=== PATIENT | female | born 1985 | race African-American/Black ===

== ENCOUNTER 2016-09-02 22:30 | Emergency (ER) | payer OTHER, MEDICAID ==
[~2016-09-02] VITALS: Ht 170.2 cm; Wt 123.0 kg
[~2016-09-02 22:30] MED LIST: NAPHSOL EACH EYE; Z.0.NO CURRENT MEDS
[2016-09-02 22:46] VITALS: BP 138/62; PULSE 98; RESP 16; TEMP 98.2; O2SAT 98
[2016-09-02] MEDS ORDERED: TETANUS/DIPHTHERIA TOXOID ADULT 0.5 ML VIAL IM ONE (23:30)
--- NOTE | 2016-09-02 23:41 | PD ---
HPI Chief Complaint: Injury Time Seen by Provider: 23:30 Travel History International Travel<30 days: No Contact w/Intl Traveler<30days: No Traveled to known affect area: No History of Present Illness HPI 31-year-old black female presents emergency Department with complaints of left ankle pain after a trip and fall prior to arrival. She states that she had stubbed her right foot causing her to stumble and twisted her left ankle. The patient does not report hearing any or feeling any popping or cracking. Pain is moderate. She denies injury to head, neck or back. No numbness, tingling or weakness. She has not had a tetanus shot over 5 years. [facility] Past Medical History Narrative Medical Questionable autoimmune disease with positive CM, gallstones Diminished Hearing: No Gastrointestinal Disorders: Yes (GALLSTONES) Tetanus Vaccination: > 5 Years Influenza Vaccination: No ?: Unknown LMP: 08/10/16 : 0 Past Surgical History Narrative Surgical Cholecystectomy Cholecystectomy: Yes Social History Alcohol Use: Yes (RARE) Tobacco Use: No Substance Use: No Allergies-Medications (Allergen,Severity, Reaction): Coded Allergies: Codeine (Verified Adverse Reaction, Severe, Palpitations, 09/02/16) No rx if takes one pill, palpitations if takes two pills at once Norflex (Verified Adverse Reaction, Severe, Rash, SWELLING, 09/02/16) Toradol (Verified Adverse Reaction, Severe, Rash, SWELLING, 09/02/16) Reported Meds & Prescriptions Reported Meds & Active Scripts Active No Active Prescriptions or Reported Medications Review of Systems Except as stated in HPI: all other systems reviewed are Neg Physical Exam Narrative GENERAL: Well-developed, well-nourished in no apparent distress. Nontoxic appearing. HEAD: Normocephalic, atraumatic. EYES: Pupils equal round and reactive. Extraocular motions intact. No scleral icterus. No injection or drainage. ENT: Nose clear. Throat without erythema, tonsillar hypertrophy or exudate. Uvula midline. Airway patent. NECK: Trachea midline. Supple, nontender, moves head freely. No central bony tenderness or spasm. CARDIOVASCULAR: Regular rate and rhythm without murmurs, gallops, or rubs. RESPIRATORY: Clear to auscultation. Breath sounds equal bilaterally. No wheezes , rales, or rhonchi. GASTROINTESTINAL: Abdomen soft, non-tender, nondistended. No hepato-splenomegaly , or palpable masses. No guarding. EXTREMITIES: No clubbing, cyanosis, the right foot has an abrasion over the second toe but there is no bony tenderness in the foot, ankle, knee or hip. The left lower extremity reveals pain to the posterior and anterior components of the lateral malleolus with mild swelling. The skin is intact. No pain in the forefoot, heel, Achilles, knee or hip. She has intact sensation with good distal pulses. BACK: Nontender without deformity. No flank tenderness. NEUROLOGICAL: Awake, alert and oriented x 3 .Cranial nerves grossly intact. Motor and sensory grossly within normal limits. Normal speech. Data Data Last Documented VS Vital Signs Date Time Temp Pulse Resp B/P Pulse Ox O2 Delivery O2 Flow Rate FiO2 09/02/16 23:25 16 97 Room Air 09/02/16 22:46 98.2 98 138/62 Orders Ankle, Complete ([id number]) (09/02/16 23:25) Ice/Cold Pack (09/02/16 23:25) Tetanus/Diphtheria Tox Adult (Tetanus/Di (09/02/16 23:30) MDM Medical Decision Making Medical Screen Exam Complete: Yes Emergency Medical Condition: Yes Medical Record Reviewed: Yes Interpretation(s) Left ankle: Negative for fracture. Differential Diagnosis MDM: High Differential diagnoses: Fracture, sprain, strain, dislocation, contusion, neurovascular injury Narrative Course X-ray is negative for fracture. Patient's given 1 g of Tylenol by mouth, ice pack, Brian wrap and crutches. This is left ankle sprain Diagnosis Primary Impression: Left ankle sprain Qualified Code: S93.422A - Sprain of deltoid ligament of left ankle, initial encounter Patient Instructions: General Instructions Departure Forms: Tests/Procedures, Work Release Special Instructions: NO WORK 2 DAYS Additional Instructions: Rest. Elevation. Ice packs for the next 3 days. Brian wrap and crutches. No weight-bearing and then progress to weight-bearing as tolerated. 2 extra strength Tylenol every 4 hours as needed for pain. Follow-up with an orthopedist or your doctor in one week. Return to the ER if any problems Med/Other Pt SpecificInfo: Prescription(s) given Scripts No Active Prescriptions or Reported Meds Disposition: 01 DISCHARGE HOME Condition: Stable Dimitris Olivarez Sep 02, 2016 23:41
--- NOTE | 2016-09-02 23:47 | RADRPT ---
EXAM DATE/TIME: 09/02/2016 23:36 [facility] COMPARISON: No previous studies available for comparison. INDICATIONS : Pt twisted ankle tonight and fell. Pain to left lateral ankle. MEDICAL HISTORY : None. SURGICAL HISTORY : None. ENCOUNTER: Initial ACUITY: 1 day PAIN SCORE: 9/10 LOCATION: Left ankle FINDINGS: Three view exam was performed of the left ankle. The bony structures are in normal alignment. No ev idence of fracture, dislocation, or soft tissue swelling. The ankle mortise is intact. No radiopaqu e foreign bodies are seen. Bony mineralization is normal. CONCLUSION: Unremarkable examination of the left ankle. Praveen Buckner MD on September 02, 2016 at 23:44 Board Certified Radiologist. This report was verified electronically.
[2016-09-03] MEDS ORDERED: ACETAMINOPHEN 500 MG CPLT PO ONE
== END 2016-09-03 00:04 | disposition home or self-care (01) ==
LOC: NEPB 22:30
DX: S93.402A Sprain of unspecified ligament of left ankle, initial encounter (principal); Z23 Encounter for immunization; S90.414A Abrasion, right lesser toe(s), initial encounter; W01.0XXA Fall on same level from slipping, tripping and stumbling without subsequent striking against object, initial encounter
CPT/HCPCS: 73610; 90471; 90714; 99283; E0113

== ENCOUNTER 2017-07-14 15:32 | Emergency (ER) | payer OTHER, MEDICAID ==
[~2017-07-14] VITALS: Ht 170.2 cm; Wt 140.0 kg
[2017-07-14 15:35] VITALS: BP 141/90; PULSE 98; RESP 16; TEMP 100; O2SAT 100
[2017-07-14] MEDS ORDERED: DEXAMETHASONE SOD PHOS 4 MG/ML VIAL IM ONE (17:45)
--- NOTE | 2017-07-14 18:06 | PD ---
HPI Chief Complaint: ENT Complaint Time Seen by Provider: 17:29 Travel History International Travel<30 days: No Contact w/Intl Traveler<30days: No Traveled to known affect area: No History of Present Illness HPI 32 yo F c/o sore throat for 3 days. swallowing is painful. daughter has strep throat. pain is constant. it involves both sides of the oropharynx. no cough. subjective fever is reported. pt also wonders if she may have a uti however states she is asymptomatic for UTI related complaints. PFSH Past Medical History Diminished Hearing: No Gastrointestinal Disorders: Yes (GALLSTONES) ?: Not LMP: 07/04/17 : 0 Past Surgical History Cholecystectomy: Yes Social History Alcohol Use: Yes (RARE) Tobacco Use: No Substance Use: No Allergies-Medications (Allergen,Severity, Reaction): Coded Allergies: codeine (Unverified Adverse Reaction, Severe, Palpitations, 04/02/17) No rx if takes one pill, palpitations if takes two pills at once ketorolac (Unverified Adverse Reaction, Severe, Rash, SWELLING, 04/02/17) orphenadrine (Unverified Adverse Reaction, Severe, Rash, SWELLING, 04/02/17 ) Reported Meds & Prescriptions Reported Meds & Active Scripts Active Amoxicillin 500 Mg Cap 500 Mg PO BID 10 Days Review of Systems General / Constitutional: Positive: Fever (subjective) HENT: No: Headaches Cardiovascular: No: Chest Pain or Discomfort Respiratory: No: Shortness of Breath Physical Exam Narrative GENERAL: 32 yo female expectorating into a green emesis bag, ambulatory in ed room, speaking full sentences, bmi 48 SKIN: Warm and dry. THROAT: Posterior oropharynx is widely patent with erythema about the tonsils bilaterally without exudate asymmetry or depression of the soft palate on either side no uvular deviation HEAD: Normocephalic. EYES: No scleral icterus. No injection or drainage. NECK: Supple, trachea midline. No JVD or lymphadenopathy. CARDIOVASCULAR: Regular rate and rhythm without murmurs, gallops, or rubs. RESPIRATORY: Breath sounds equal bilaterally. No accessory muscle use. GASTROINTESTINAL: Abdomen soft, non-tender, nondistended. MUSCULOSKELETAL: No cyanosis, or edema. BACK: Nontender without obvious deformity. No CVA tenderness. Data Data Last Documented VS Vital Signs Date Time Temp Pulse Resp B/P (MAP) Pulse Ox O2 Delivery O2 Flow Rate FiO2 07/14/17 18:59 07/14/17 15:35 100.0 98 16 100 vs reviewed Vital Signs Date Time Temp Pulse Resp B/P (MAP) Pulse Ox O2 Delivery O2 Flow Rate FiO2 07/14/17 18:59 07/14/17 15:35 100.0 98 16 141/90 (107) 100 Orders Orders Urinalysis - C+S If Indicated (07/14/17 17:42) Dexamethasone Inj (Decadron Inj) (07/14/17 17:45) Lidocaine 2% Viscous (Xylocaine 2% Visco (07/14/17 18:30) Amoxicillin (Trimox) (07/14/17 18:30) Ibuprofen (Motrin) (07/14/17 19:00) Ed Discharge Order (07/14/17 18:54) Labs Laboratory Tests Test 07/14/17 18:10 Urine Color YELLOW Urine Turbidity HAZY Urine pH 6.0 Urine Specific Delight 1.017 Urine Protein NEG mg/dL Urine Glucose (UA) NEG mg/dL Urine Ketones 10 mg/dL Urine Occult Blood NEG Urine Nitrite NEG Urine Bilirubin NEG Urine Urobilinogen LESS THAN 2.0 MG/DL Urine Leukocyte Esterase SMALL Urine RBC 1 /hpf Urine WBC 5 /hpf Urine Squamous Epithelial Cells 1 /hpf Urine Mucus FEW /lpf Microscopic Urinalysis Comment CULT NOT INDICATED MDM Medical Decision Making Medical Screen Exam Complete: Yes Emergency Medical Condition: Yes Medical Record Reviewed: Yes Differential Diagnosis strep thraot, uti, viral pharyngitis, job captain, rpa, lemier's disease Narrative Course concern for strep reasonably high and pt prefers amoxicillin ua shows no uti pt requested a cup of water in order to urinate and drank without difficulty Diagnosis Primary Impression: Pharyngitis Qualified Codes: J02.9 - Acute pharyngitis, unspecified Med/Other Pt SpecificInfo: Prescription(s) given Scripts Amoxicillin (Amoxicillin) 500 Mg Cap 500 MG PO BID for Infection for 10 Days, #20 CAP 0 Refills Prov: Thien Le MD 07/14/17 Disposition: 01 DISCHARGE HOME Condition: Stable Thien Le MD Jul 14, 2017 18:06
[2017-07-14] MEDS ORDERED: AMOX500C PO (18:19)
[2017-07-14] MEDS ORDERED: AMOXICILLIN (TRIHYDRATE) 500 MG CAP PO ONE (18:30)
[2017-07-14] MEDS ORDERED: LIDOCAINE VISCOUS 2% SOLN 15 ML UDC PO ONE (18:30)
[2017-07-14 18:36] LABS: BLOOD, URINE NEG (NEG); COMMENT (UR) CULT NOT INDICATED; CULTURE IF INDICATED CULT NOT INDICATED; GLUCOSE,URINE NEG (NEG); KETONE, URINE 10 mg/dL (NEG); MUCUS URINE FEW /lpf (OCC); NITRITE,URINE NEG (NEG); SQUAMOUS EPITHELIAL CELL URINE 1 /hpf (0-5); URINE COLOR YELLOW (YELLW/STRAW)
[2017-07-14] MEDS ORDERED: IBUPROFEN 600 MG TAB PO ONE (19:00)
== END 2017-07-14 19:08 | disposition home or self-care (01) ==
LOC: NEPD 15:32
DX: J02.9 Acute pharyngitis, unspecified (principal)
CPT/HCPCS: 81001; 99283